=== PATIENT | male | born 1970 | race American Indian/Alaskan Native ===

== ENCOUNTER 2017-09-05 21:50 | Emergency (ER) | payer OTHER ==
[2017-09-05 22:46] LABS: Basophils % (Auto) 0.3 % (0.0-1.8); Eosinophils # (Auto) 0.2 K/mm3 (0.0-0.4); Eosinophils % (Auto) 2.1 % (0.0-4.3); Hematocrit 40.9 % (35.5-45.6); Hemoglobin 13.6 gm/dl (11.8-15.2); Lymphocytes # (Auto) 1.8 K/mm3 (1.2-5.4); Mean Corpuscular HGB Conc 33 % (32-34); Mean Corpuscular Hemoglobin 28 pg (28-32); Mean Corpuscular Volume 84 fl (84-94); Monocytes # (Auto) 0.6 K/mm3 (0.0-0.8); Monocytes % (Auto) 7.8 % (0.0-7.3); Platelet Count 203 K/mm3 (140-440); Red Blood Count 4.88 M/mm3 (3.65-5.03); Red Cell Distribution Width 14.8 % (13.2-15.2)
[2017-09-05 23:11] LABS: BUN/Creatinine Ratio 11; Blood Urea Nitrogen 11 mg/dL (9-20); Calcium 8.8 mg/dL (8.4-10.2); Hemolysis Index 7
--- NOTE | 2017-09-05 23:34 | XRay Report ---
FINAL REPORT PROCEDURE: XR CHEST ROUTINE 2V TECHNIQUE: PA and lateral chest radiographs were obtained. CPT 74371 HISTORY: shortness of breath COMPARISON: No prior studies are available for comparison. FINDINGS: Heart: Normal. Mediastinum/Vessels: Normal. Lungs/Pleural space: Lungs are expanded. There are faint infiltrates in the right middle lobe laterally. There is no pleural effusion or pneumothorax.. Bony thorax: No acute osseous abnormality. Other: IMPRESSION: Heart size is normal.. Lungs are expanded. There are faint infiltrates in the right middle lobe laterally. There is no pleural effusion or pneumothorax..
--- NOTE | 2017-09-06 02:44 | Emergency Department Report ---
- General Chief Complaint: Upper Respiratory Infection Stated Complaint: CP Time Seen by Provider: 09/06/17 02:37 Source: patient Mode of arrival: Ambulatory Limitations: No Limitations - History of Present Illness Initial Comments: 46-year-old -[place] male comes in complaining of cough, fever, sweats and body aches. Patient reports that he has chest pain when he coughs and is located in the middle chest. Patient reports yellow sputum. 4 days as well as reporting a headache that he reports is a migraine that he's had for 4 days. Patient does admit he has diabetes. Complains of sore throat has not taken any [id number]-vdy-mejlrcx cough medication but has taken Advil prior to arrival. MD Complaint: fever, cough, sore throat, nasal congestion -: days(s) (4) Severity: moderate Severity scale (0 -10): 5 Quality: sharp Consistency: intermittent Improves With: NSAID Worsens With: other Associated Symptoms: fever, nasal congestion, cough, right sweats Treatments Prior to Arrival: Ibuprofen - Related Data Previous Rx's Medication Instructions Recorded Last Taken Type ALBUTEROL Inhaler [ProAir HFA 2 puff IH QID PRN #1 inhalation 09/06/17 Unknown Rx Inhaler] Amoxicillin [Amoxicillin TAB] 875 mg PO BID 10 Days #20 tablet 09/06/17 Unknown Rx Benzonatate [Tessalon Perles] 100 mg PO Q8HR #15 capsule 09/06/17 Unknown Rx Allergies Allergy/AdvReac Type Severity Reaction Status Date / Time No Known Allergies Allergy Verified 09/06/17 03:07 ED Review of Systems ROS: Stated complaint: CP Other details as noted in HPI Constitutional: fever, malaise, other (body aches) Eyes: other ENT: throat pain Respiratory: cough Cardiovascular: chest pain (breath cough) Neurological: headache (migraine 4 days) ED Past Medical Hx - Medications Home Medications: Home Medications Medication Instructions Recorded Confirmed Last Taken Type ALBUTEROL Inhaler [ProAir HFA 2 puff IH QID PRN #1 inhalation 09/06/17 Unknown Rx Inhaler] Amoxicillin [Amoxicillin TAB] 875 mg PO BID 10 Days #20 tablet 09/06/17 Unknown Rx Benzonatate [Tessalon Perles] 100 mg PO Q8HR #15 capsule 09/06/17 Unknown Rx ED Physical Exam - General Limitations: No Limitations General appearance: alert, in no apparent distress - Eye Eye exam: Present: EOMI - ENT ENT exam: Present: normal orophraynx, mucous membranes moist - Neck Neck exam: Present: full ROM. Absent: lymphadenopathy - Respiratory Respiratory exam: Present: rales - Cardiovascular Cardiovascular Exam: Present: regular rate, normal rhythm. Absent: systolic murmur, diastolic murmur, rubs, gallop - GI/Abdominal GI/Abdominal exam: Present: soft, normal bowel sounds - Extremities Exam Extremities exam: Present: full ROM - Back Exam Back exam: Present: full ROM - Neurological Exam Neurological exam: Present: alert, oriented X3 ED Course Vital Signs 09/05/17 22:10 Temperature 98.6 F Pulse Rate 96 H Respiratory 18 Rate Blood Pressure 162/107 O2 Sat by Pulse 98 Oximetry ED Medical Decision Making - Lab Data Result diagrams: 09/05/17 22:20 09/05/17 22:20 - Radiology Data Radiology results: report reviewed, image reviewed FINDINGS: Heart: Normal. Mediastinum/Vessels: Normal. Lungs/Pleural space: Lungs are expanded. There are faint infiltrates in the right middle lobe laterally. There is no pleural effusion or pneumothorax.. Bony thorax: No acute osseous abnormality. Other: IMPRESSION: Heart size is normal.. Lungs are expanded. There are faint infiltrates in the right middle lobe laterally. There is no pleural effusion or pneumothorax.. Transcribed By: CO Dictated By: FRANKY REYNOSO MD Electronically Authenticated By: FRANKY REYNOSO MD Signed Date/Time: 09/05/172329 DD/ 29 TD/TT: 09/05/172329 - Medical Decision Making Patient has been evaluated by this provider fast track. IV insertion for IV Benadryl, Toradol, Reglan for migraine. Tessalon Perles for cough. Discharge patient on amoxicillin 875 mg by mouth twice a day 10 days for pneumonia. Prescription for Tessalon Perles for cough and albuterol inhaler for cough. Discussed patient he needs to follow up with his primary care provider in the next 3-5 days. Patient verbalized understanding. Critical care attestation.: If time is entered above; I have spent that time in minutes in the direct care of this critically ill patient, excluding procedure time. ED Disposition Clinical Impression: Pneumonia Qualifiers: Pneumonia type: due to unspecified organism Laterality: right Lung location: middle lobe of lung Qualified Code(s): J18.1 - Lobar pneumonia, unspecified organism Migraine Qualifiers: Migraine type: unspecified Status migrainosus presence: without status migrainosus Disposition: DC-01 TO HOME OR SELFCARE Is pt being admited?: No Does the pt Need Aspirin: No Condition: Stable Instructions: Bacterial Pneumonia (ED) Additional Instructions: Please take an complete antibiotics as prescribed. Please take Tessalon and knee sure inhaler as needed. It is important for you to follow up with her primary care provider in the next 3-5 days for follow-up. Prescriptions: ALBUTEROL Inhaler [ProAir HFA Inhaler] 2 puff IH QID PRN #1 inhalation PRN Reason: Shortness Of Breath Amoxicillin [Amoxicillin TAB] 875 mg PO BID 10 Days #20 tablet Benzonatate [Tessalon Perles] 100 mg PO Q8HR #15 capsule Referrals: PRIMARY CARE, [Primary Care Provider] - 3-5 Days you're, provider [Other] - 3-5 Days Forms: Work/School Release Form(ED), Accompanied Note
[2017-09-06] MEDS ORDERED: REGLAN IV ONE (02:47)
[2017-09-06] MEDS ORDERED: BENADRYL IV ONE (02:47)
[2017-09-06] MEDS ORDERED: TORADOL IV ONE (02:47)
[2017-09-06] MEDS ORDERED: TRIMOX PO ONE (02:49)
[2017-09-06] MEDS ORDERED: TESSALON PERLES PO ONE (02:49)
[2017-09-06] MEDS ORDERED: REGLAN ONE (03:00)
[2017-09-06] MEDS ORDERED: BENADRYL PO ONE ×2 (03:00→03:31)
[2017-09-06] MEDS ORDERED: REGLAN PO ONE (03:32)
[2017-09-06] MEDS ORDERED: TORADOL IM ONE (03:32)
[2017-09-06 03:37] VITALS: BP 155/105
== END 2017-09-06 03:20 | disposition home or self-care (01) ==
LOC: ED 21:50
DX: J18.1 Lobar pneumonia, unspecified organism (principal); G43.909 Migraine, unspecified, not intractable, without status migrainosus
CPT/HCPCS: 36415; 71046; 80048; 85025; 93005; 93010; 96372; 99284; J1885